=== PATIENT | female | born 1955 | race Caucasian/White ===

== ENCOUNTER 2019-03-24 05:48 | Emergency (ER) | payer BC, OTHER ==
[2019-03-24 06:39] LABS: URINE BLOOD (Dip) POC Negative (NEGATIVE); URINE GLUCOSE (Dip) POC Negative (NEGATIVE); URINE KETONES (Dip) POC Negative (NEGATIVE); URINE LEUKOCYTE EST (Dip) POC Trace (NEGATIVE); URINE NITRITE (Dip) POC Negative (NEGATIVE); URINE TOTAL PROTEIN POC Negative (NEGATIVE)
== END 2019-03-24 07:20 | disposition home or self-care (01) ==
LOC: FTE 05:48
DX: J01.90 Acute sinusitis, unspecified (principal); I10 Essential (primary) hypertension
CPT/HCPCS: 81003; 81025; 99283